=== PATIENT | male | born 1965 | race Caucasian/White ===

== ENCOUNTER 2019-07-27 13:05 | Emergency (ER) | payer OTHER ==
--- NOTE | 2019-07-27 13:42 | EDM.PDOC ---
ED HPI GENERAL MEDICAL PROBLEM - General Chief Complaint: Skin Complaint Stated Complaint: SKIN RASH Time Seen by Provider: 07/27/19 13:06 Source of Information: Reports: Patient History Limitations: Reports: No Limitations - History of Present Illness INITIAL COMMENTS - FREE TEXT/NARRATIVE: HISTORY AND PHYSICAL: History of present illness: Patient is a 54-year-old male who presents to the emergency room with complaints of skin irritation, skin cracking and redness to his upper extremities. This is been ongoing for approximately 3 weeks and did associate this with having to wash his hands and use PPE more frequently due to the COVID- 19 concerns. Over the past 3 weeks he has been seen on 2 separate previous occasions and had been given prescriptions for Benadryl, prednisone, Atarax, hydrocodone and betamethasone cream. The only medication he felt that improved his symptoms was prednisone, he finished this last week. He states the discomfort, redness, dry skin and irritation was almost resolved and he decided to stay home this last week. Since being home he has not had any new exposures , has not had to wear any PPE and has not been washing his hands as frequently as he had been while at work. This week his symptoms have returned and he now has some soft tissue swelling at the wrists as well. He has tried to get in with a filter washer and presser, soonest available appointment is next week in [place]. Patient denies any fever, chills, headache, change in vision, syncope or near syncope. Denies any chest pain, back pain, shortness of breath or cough. Denies any GI or symptoms. Patient has been eating and drinking appropriately. Review of systems: As per history of present illness and below otherwise all systems reviewed and negative. Past medical history: As per history of present illness and as reviewed below otherwise noncontributory. Surgical history: As per history of present illness and as reviewed below otherwise noncontributory. Social history: See social history for further information Family history: As per history of present illness and as reviewed below otherwise noncontributory. Physical exam: General: Well-developed and well-nourished 54-year-old male. Alert and oriented. Nontoxic-appearing and in no acute distress. HEENT: Atraumatic, normocephalic, pupils equal and reactive bilaterally, negative for conjunctival pallor or scleral icterus, mucous membranes moist, trachea midline. No drooling or trismus noted. No meningeal signs. No hot potato voice noted. Lungs: Clear to auscultation, breath sounds equal bilaterally, chest nontender. Heart: S1S2, regular rate and rhythm without overt murmur Abdomen: Soft, nondistended, nontender. Negative for masses or hepatosplenomegaly. Negative for costovertebral tenderness. Skin: Hands bilaterally are erythematous, rough texture and excessively dry with some cracks along the wrist line where he does have some mild soft tissue swelling. Dermatitis suspected likely originating from a contact dermatitis. No area of fluctuance or induration. Does not appear toxic or blistery. Extremities: Atraumatic, moves all extremities per self without difficulty or deficits. Neurovascular unremarkable. Neuro: Awake, alert, oriented. Cranial nerves II through XII unremarkable. Cerebellum unremarkable. Motor and sensory unremarkable throughout. Exam nonfocal. Notes: I did have Dr Ruelas reviewed patient's skin as well is this patient has been seen and treated several times prior to presenting to our emergency room. Patient has not yet done a course of antibiotic and did seem to improve with the steroid. Prescription for Keflex, prednisone and Atarax will be given. He does now appointment next week with the filter washer and presser, advised to keep this appointment and follow-up as directed. Reviewed signs and symptoms that would prompt him to return to the emergency room. Supportive care measures were reviewed and discussed. Voices understanding and is agreeable to plan of care. Denies any further questions or concerns at this time. Diagnostics: None Therapeutics: None Prescription: Prednisone, Keflex, Atarax Impression: Dermatitis Plan: 1. Please avoid any strong lotions or creams (that contain alcohol, perfumes, etc...) I would get some thick emollient cream to apply twice daily. 2. Take the medications as prescribed. Prednisone ulises: 50mg once daily x 2 days, then 40mg once daily x 2 day, then 30mg once daily x 2 days, then 20mg once daily x 2 days, then 10mg once daily x 2 days. Keflex (antibiotic) 500mg twice daily x 7 days. Atarax as needed for itching. 3. Keep your follow up appointment with the Palliative Care Nurse as discussed. 4. Return to the ED as needed as discussed. Definitive disposition and diagnosis as appropriate pending reevaluation and review of above. Hands/Arms Pain Score (Numeric/FACES): 10 - Related Data Allergies Allergy/AdvReac Type Severity Reaction Status Date / Time codeine Allergy Abdominal Verified 07/27/19 13:20 Pain tramadol Allergy Abdominal Verified 07/27/19 13:20 Pain Home Meds: Home Meds cephALEXin [Keflex] 500 mg PO BID 7 Days #14 cap 07/27/19 [Rx] hydrOXYzine HCL [Atarax] 25 mg PO Q6H PRN #20 tab 07/27/19 [Rx] predniSONE [Prednisone] 10 mg PO DAILY 10 Days #30 tablet 07/27/19 [Rx] Past Medical History - Past Health History Medical/Surgical History: Denies Medical/Surgical History - Infectious Disease History Infectious Disease History: Reports: None Social & Family History - Family History Family Medical History: Noncontributory - Tobacco Use Smoking Status *Q: Current Every Day Smoker Years of Tobacco use: 20 Packs/Tins Daily: 1 - Caffeine Use Caffeine Use: Reports: None - Recreational Drug Use Recreational Drug Use: No ED ROS GENERAL - Review of Systems Review Of Systems: Comprehensive ROS is negative, except as noted in HPI. ED EXAM, SKIN/RASH Exam: See Below (See dictation) Course - Vital Signs Last Recorded V/S: Last Vital Signs Temp 97.9 F 07/27/19 13:21 Pulse 108 H 07/27/19 13:21 Resp 16 07/27/19 13:21 BP 134/94 H 07/27/19 13:21 Pulse Ox 97 07/27/19 13:21 Departure - Departure Time of Disposition: 13:46 Disposition: Home, Self-Care 01 Clinical Impression: Dermatitis - Discharge Information Prescriptions: cephALEXin [Keflex] 500 mg PO BID 7 Days #14 cap hydrOXYzine HCL [Atarax] 25 mg PO Q6H PRN #20 tab PRN Reason: Itching predniSONE [Prednisone] 10 mg PO DAILY 10 Days #30 tablet Instructions: Atopic Dermatitis Referrals: PCP,None [Primary Care Provider] - Forms: ED Department Discharge Additional Instructions: The following information is given to patients seen in the emergency department who are being discharged to home. This information is to outline your options for follow-up care. We provide all patients seen in our emergency department with a follow-up referral. The need for follow-up, as well as the timing and circumstances, are variable depending upon the specifics of your emergency department visit. If you don't have a primary care physician on staff, we will provide you with a referral. We always advise you to contact your personal physician following an emergency department visit to inform them of the circumstance of the visit and for follow-up with them and/or the need for any referrals to a consulting specialist. The emergency department will also refer you to a specialist when appropriate. This referral assures that you have the opportunity for follow-up care with a specialist. All of these measure are taken in an effort to provide you with optimal care, which includes your follow-up. Under all circumstances we always encourage you to contact your private physician who remains a resource for coordinating your care. When calling for follow-up care, please make the office aware that this follow-up is from your recent emergency room visit. If for any reason you are refused follow-up, please contact the [facility] Emergency Department at and asked to speak to the emergency department charge nurse. [facility] [address] [place] [id number] [place] [address] 1. Please avoid any strong lotions or creams (that contain alcohol, perfumes, etc...) I would get some thick emollient cream to apply twice daily (can apply thick and use gloves to keep moister in for 30 minutes). 2. Take the medications as prescribed. Prednisone ulises: 50mg once daily x 2 days, then 40mg once daily x 2 day, then 30mg once daily x 2 days, then 20mg once daily x 2 days, then 10mg once daily x 2 days. Keflex (antibiotic) 500mg twice daily x 7 days. Atarax as needed for itching. 3. Keep your follow up appointment with the Palliative Care Nurse as discussed. 4. Return to the ED as needed as discussed. Sepsis Event Note - Evaluation Sepsis Screening Result: No Definite Risk - Focused Exam Vital Signs: Vital Signs Temp Pulse Resp BP Pulse Ox 07/27/19 13:21 97.9 F 108 H 16 134/94 H 97 Date Exam was Performed: 07/27/19 Time Exam was Performed: 13:54
== END 2019-07-27 14:05 | disposition home or self-care (01) ==
LOC: MW.ED 13:05
DX: L30.9 Dermatitis, unspecified (principal); F17.210 Nicotine dependence, cigarettes, uncomplicated; Z88.5 Allergy status to narcotic agent
CPT/HCPCS: 99282

== ENCOUNTER 2019-09-23 19:34 | Emergency (ER) | payer OTHER ==
[2019-09-23] MEDS ORDERED: predniSONE 10 MG Tab PO ONE (20:37)
--- NOTE | 2019-09-23 20:43 | EDM.PDOC ---
ED HPI GENERAL MEDICAL PROBLEM - General Chief Complaint: Skin Complaint Stated Complaint: POSSIBLE ALLERGIC REACTION Time Seen by Provider: 09/23/19 19:38 Source of Information: Reports: Patient History Limitations: Reports: No Limitations - History of Present Illness INITIAL COMMENTS - FREE TEXT/NARRATIVE: Presents reporting rash. The patient states that a month or so ago he broke out from a disinfectant hand wash. The rash did not go away so he went to see a primary provider and then on to dermatology. He was given clobetasol but the rash took over a month to resolve. 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 He has done this for many years. Yesterday he did a job with full PPI including gloves, coveralls and shoe coverings, respirator. Last night he broke out with a rash on his hands legs and soles of the feet. His hands quickly developed vesicles which ruptured, skin sloughing, swelling and pain. He did apply clobetasol to his hands. Denies systemic symptoms such as fever, wheezing, breathing problems, face tongue or lip swelling. skin Pain Score (Numeric/FACES): 8 - Related Data Allergies Allergy/AdvReac Type Severity Reaction Status Date / Time codeine Allergy Abdominal Verified 09/23/19 19:59 Pain tramadol Allergy Abdominal Verified 09/23/19 19:59 Pain Home Meds: Home Meds Clobetasol [Clobetasol Propionate 0.05%] 15 gm TP 09/23/19 [History] diphenhydrAMINE [Benadryl] 50 mg PO Q6HR PRN #20 cap 09/23/19 [Rx] predniSONE [Prednisone] 2 tab PO DAILY #10 tablet 09/23/19 [Rx] Past Medical History - Past Health History Medical/Surgical History: Denies Medical/Surgical History - Infectious Disease History Infectious Disease History: Reports: None Social & Family History - Family History Family Medical History: Noncontributory - Tobacco Use Smoking Status *Q: Current Every Day Smoker Years of Tobacco use: 30 Packs/Tins Daily: 1 - Caffeine Use Caffeine Use: Reports: None - Recreational Drug Use Recreational Drug Use: No ED ROS GENERAL - Review of Systems Review Of Systems: Comprehensive ROS is negative, except as noted in HPI. ED EXAM, SKIN/RASH Exam: See Below Exam Limited By: No Limitations General Appearance: Alert, No Apparent Distress Ears: Normal External Exam Nose: Normal Inspection Throat/Mouth: Normal Inspection Head: Atraumatic, Normocephalic Neck: Normal Inspection Respiratory/Chest: No Respiratory Distress, Lungs Clear, Normal Breath Sounds Cardiovascular: Normal Peripheral Pulses, Regular Rate, Rhythm, No Murmur GI/Abdominal: Soft Rectal (Males) Exam: Normal Exam Back Exam: Normal Inspection Extremities: Normal Inspection Neurological: Alert, Oriented Psychiatric: Normal Affect, Normal Mood Skin: Warm, Dry, Intact, Normal Color, Other (Hands palms erythematous, vesicular with swelling and some skin sloughing. Legs with macular papular erythematous rash that is dry and scabbed and some areas.) Lymphatic: No Adenopathy Course - Vital Signs Last Recorded V/S: Last Vital Signs Temp 35.9 C L 09/23/19 20:02 Pulse 106 H 09/23/19 20:02 Resp 20 09/23/19 20:02 BP 137/87 09/23/19 20:02 Pulse Ox 95 09/23/19 20:02 - Orders/Labs/Meds Orders: Active Orders 24 hr Category Date Time Status predniSONE Med 09/23/19 20:37 Once 50 mg PO ONETIME ONE - Re-Assessments/Exams Free Text/Narrative Re-Assessment/Exam: 09/23/19 20:52 Dr. Cervantes examined patient. Departure - Departure Time of Disposition: 20:53 Disposition: Home, Self-Care 01 Clinical Impression: Atopic eczema - Discharge Information Prescriptions: diphenhydrAMINE [Benadryl] 50 mg PO Q6HR PRN #20 cap PRN Reason: Rash predniSONE [Prednisone] 2 tab PO DAILY #10 tablet Referrals: PCP,None [Primary Care Provider] - Bryon Cisneros MD [Ordering Only Provider] - Additional Instructions: The following information is given to patients seen in the emergency department who are being discharged to home. This information is to outline your options for follow-up care. We provide all patients seen in our emergency department with a follow-up referral. The need for follow-up, as well as the timing and circumstances, are variable depending upon the specifics of your emergency department visit. If you don't have a primary care physician on staff, we will provide you with a referral. We always advise you to contact your personal physician following an emergency department visit to inform them of the circumstance of the visit and for follow-up with them and/or the need for any referrals to a consulting specialist. The emergency department will also refer you to a specialist when appropriate. This referral assures that you have the opportunity for follow-up care with a specialist. All of these measure are taken in an effort to provide you with optimal care, which includes your follow-up. Under all circumstances we always encourage you to contact your private physician who remains a resource for coordinating your care. When calling for follow-up care, please make the office aware that this follow-up is from your recent emergency room visit. If for any reason you are refused follow-up, please contact the [facility] Emergency Department at and asked to speak to the emergency department charge nurse. 1. Continue to use your clobetasol to affected areas twice daily. 2. Prednisone 2 tabs daily for the next 5 days. You have had a dose tonight in the emergency room so start tomorrow evening 3. Benadryl 25 to 50 mg every 6 hours as needed for itch and swelling. This medication will make you sleepy so no driving or operating machinery 4. Use a good moisturizing lotion to unaffected areas and to affected areas once they have healed and clobetasol ointment treatment is done. Suggest Lubriderm, Gold Shields, Eucerin--twice daily. 5. You must follow up in Dermatology. Dr. Cisneros's contact numbers are provided. Please make an appointment within the next week. Tell them you were seen in the emergency room for dehydrosis eczema. Sepsis Event Note (ED) - Evaluation Sepsis Screening Result: No Definite Risk - Focused Exam Vital Signs: Vital Signs Temp Pulse Resp BP Pulse Ox 09/23/19 20:02 35.9 C L 106 H 20 137/87 95 - My Orders Last 24 Hours: My Active Orders 09/23/19 20:37 predniSONE 50 mg PO ONETIME ONE - Assessment/Plan Last 24 Hours: My Active Orders 09/23/19 20:37 predniSONE 50 mg PO ONETIME ONE
[2019-09-23] MEDS ORDERED: predniSONE 10 MG Tab ONE (21:04)
[2019-09-23] MEDS ORDERED: Acetaminophen/HYDROcodone 325-7.5 MG Tab ONE (21:19)
[2019-09-23] MEDS ORDERED: Acetaminophen/HYDROcodone 325-7.5 MG Tab PO STA (21:21)
== END 2019-09-23 21:25 | disposition home or self-care (01) ==
LOC: MW.ED 19:34
DX: L20.9 Atopic dermatitis, unspecified (principal); F17.210 Nicotine dependence, cigarettes, uncomplicated; Z88.5 Allergy status to narcotic agent
CPT/HCPCS: 99282; A9270

== ENCOUNTER 2019-10-06 19:01 | Emergency (ER) | payer OTHER ==
--- NOTE | 2019-10-06 19:37 | EDM.PDOC ---
ED HPI GENERAL MEDICAL PROBLEM - General Chief Complaint: Skin Complaint Stated Complaint: SKIN INFECTION/RASH Time Seen by Provider: 10/06/19 19:03 Source of Information: Reports: Patient History Limitations: Reports: No Limitations - History of Present Illness INITIAL COMMENTS - FREE TEXT/NARRATIVE: 54-year-old male with a history of atopic dermatitis returns with pruritic pa inful rash in his left upper extremity, trunk for 3 days. Denies fever, chills, insect bites, tongue swelling, shortness of breath. He is an industrial engineer. He was seen here on 09/23/19 for an prescribed prednisone and Benadryl and referred to see dermatology. He has not seen Dr. Cisneros but has an upcoming appoitnment. A month or so ago he broke out from a disinfectant hand wash. The rash did not go away so he went to see a primary provider and referred to dermatology in [place], where he was prescribe clobetasol ointment. His rash has since improved from 09/22 but he ran out of his clobetasol 5 days ago. ROS: A 10-point review of systems, other than pertinent positives and negatives as stated per HPI, is otherwise negative Past medical history: No additional pertinent history Past Surgical history: No additional pertinent history Social history: No additional pertinent history Family history: No additional pertinent history PHYSICAL EXAM General: AOx4, GCS = 15, No distress HEENT: dry mucous membrane Neck: supple, no meningismus, no Kernig or Brudzinski Cardiac: S1S2 RRR Respiratory: CTAB, no crackles or rales, no wheezing Abdomen: Soft, nontender, no rebound or guarding, nondistended, no pulsatile mass. Back: nontender Musculoskeletal: NVI distally, no deformity Neuro: No focal deficits, CN 2 - 12 WNL. Skin: Vesicular eczema in his left upper extremity, bilateral hands, improved from 09/23/2019. - Related Data Allergies Allergy/AdvReac Type Severity Reaction Status Date / Time codeine Allergy Abdominal Verified 10/06/19 19:52 Pain tramadol Allergy Abdominal Verified 10/06/19 19:52 Pain Home Meds: Home Meds Clobetasol [Clobetasol Propionate 0.05%] 15 gm TP 09/23/19 [History] Hydrocodone/Acetaminophen [Hydrocodone-Acetamin 5-325 mg] 1 tab PO Q6HR PRN #20 tablet 09/23/19 [Rx] diphenhydrAMINE [Benadryl] 50 mg PO Q6HR PRN #20 cap 09/23/19 [Rx] predniSONE [Prednisone] 2 tab PO DAILY #10 tablet 09/23/19 [Rx] Clobetasol [Clobetasol Propionate 0.05%] 30 gm TOP BID #1 tube 10/06/19 [Rx] Past Medical History - Past Health History Medical/Surgical History: Denies Medical/Surgical History - Infectious Disease History Infectious Disease History: Reports: None Social & Family History - Family History Family Medical History: Noncontributory - Caffeine Use Caffeine Use: Reports: None ED ROS GENERAL - Review of Systems Review Of Systems: Comprehensive ROS is negative, except as noted in HPI. ED EXAM, SKIN/RASH Exam: See Below (see dictation) Course - Vital Signs Last Recorded V/S: Last Vital Signs Temp 98.0 F 10/06/19 19:42 Pulse 103 H 10/06/19 19:42 Resp 16 10/06/19 19:42 BP 131/94 H 10/06/19 19:42 Pulse Ox 98 10/06/19 19:42 - Re-Assessments/Exams Free Text/Narrative Re-Assessment/Exam: 10/06/19 19:35 After IM decadron, patient is stable for discharge. I advised the patient to return to the ER for reevaluation if symptoms worsened, including fever, worsening pain, or any other worrisome symptoms. I instructed the patient to follow up with dermatology Dr. Bryon Cisneros within 2-3 days. MEDICAL DECISION MAKING: I reviewed the patients past medical records, lab and radiographic findings. I discussed the case with the patient. My differential diagnosis included: Dyshidrosis eczema, atopic dermatitis, no suspicion for systemic infection. Patient is afebrile, no chills, I do not suspect systemic infection or endocarditis or rheumatic fever. Departure - Departure Time of Disposition: 19:35 Disposition: Home, Self-Care 01 Condition: Good Clinical Impression: Dyshidrotic eczema - Discharge Information *PRESCRIPTION DRUG MONITORING PROGRAM REVIEWED*: Not Applicable *COPY OF PRESCRIPTION DRUG MONITORING REPORT IN PATIENT TAVIA: Not Applicable Prescriptions: Clobetasol [Clobetasol Propionate 0.05%] 30 gm TOP BID #1 tube Referrals: Bryon Cisneros MD [Ordering Only Provider] - 3 Days Forms: ED Department Discharge Additional Instructions: The following information is given to patients seen in the emergency department who are being discharged to home. This information is to outline your options for follow-up care. We provide all patients seen in our emergency department with a follow-up referral. The need for follow-up, as well as the timing and circumstances, are variable depending upon the specifics of your emergency department visit. If you don't have a primary care physician on staff, we will provide you with a referral. We always advise you to contact your personal physician following an emergency department visit to inform them of the circumstance of the visit and for follow-up with them and/or the need for any referrals to a consulting specialist. The emergency department will also refer you to a specialist when appropriate. This referral assures that you have the opportunity for follow-up care with a specialist. All of these measure are taken in an effort to provide you with optimal care, which includes your follow-up. Under all circumstances we always encourage you to contact your private physician who remains a resource for coordinating your care. When calling for follow-up care, please make the office aware that this follow-up is from your recent emergency room visit. If for any reason you are refused follow-up, please contact the [facility] Emergency Department at and asked to speak to the emergency department charge nurse. Dermatology Dr. Bryon Cisneros - Dermatology [facility] [address] [place] [address], [address] [place] [address] Sepsis Event Note (ED) - Focused Exam Vital Signs: Vital Signs Temp Pulse Resp BP Pulse Ox 10/06/19 19:42 98.0 F 103 H 16 131/94 H 98
[2019-10-06] MEDS ORDERED: Dexamethasone 10 MG/ML SDV IM ONE (20:12)
== END 2019-10-06 20:40 | disposition home or self-care (01) ==
LOC: MW.ED 19:01
DX: L30.1 Dyshidrosis [pompholyx] (principal); Z88.5 Allergy status to narcotic agent; Z88.6 Allergy status to analgesic agent; Z79.899 Other long term (current) drug therapy
CPT/HCPCS: 96372; 99282; J1100